=== PATIENT | female | born 1995 | race Caucasian/White ===

== ENCOUNTER 2021-07-12 08:52 | Outpatient (CLI) | payer OTHER, SELFPAY | END 2021-07-12 09:32 | disposition home or self-care (01) | LOC: LABOR 09:14 → OB 07-14 11:07 | PROVIDERS: PCP Obstetrics & Gynecology; Referring Provider Obstetrics & Gynecology; Visit Provider Obstetrics & Gynecology | DX: O24.415 Gestational diabetes mellitus in pregnancy, controlled by oral hypoglycemic drugs (principal); Z3A.36 36 weeks gestation of pregnancy | CPT/HCPCS: 59025; 87653; G0378; G0379 ==

== ENCOUNTER → 2021-07-12 09:36 | Outpatient (CLI) | payer OTHER, SELFPAY ==
[2021-07-13 13:25] LABS: Strep Grp B PCR POS for Grp B Strep
== END ==
PROVIDERS: PCP Obstetrics & Gynecology; Visit Provider Obstetrics & Gynecology
DX: Z34.83 Encounter for supervision of other normal pregnancy, third trimester (principal); Z3A.36 36 weeks gestation of pregnancy
CPT/HCPCS: 87653

== ENCOUNTER 2021-07-15 08:38 | Outpatient (CLI) | payer OTHER, SELFPAY | END 2021-07-15 09:10 | disposition home or self-care (01) | LOC: LABOR 10:08 → OB 07-19 07:28 | PROVIDERS: PCP Obstetrics & Gynecology; Referring Provider Obstetrics & Gynecology; Visit Provider Obstetrics & Gynecology | DX: O24.415 Gestational diabetes mellitus in pregnancy, controlled by oral hypoglycemic drugs (principal); Z3A.37 37 weeks gestation of pregnancy | CPT/HCPCS: 59025; G0378; G0379 ==

== ENCOUNTER 2021-07-18 08:10 | Outpatient (CLI) | payer OTHER, SELFPAY | END 2021-07-18 09:05 | disposition home or self-care (01) | LOC: LABOR 08:39 → OB 07-19 07:30 | PROVIDERS: PCP Student in an Organized Health Care Education/Training Program; Referring Provider Obstetrics & Gynecology; Visit Provider Obstetrics & Gynecology | DX: O24.419 Gestational diabetes mellitus in pregnancy, unspecified control (principal); Z3A.37 37 weeks gestation of pregnancy | CPT/HCPCS: 59025; G0378; G0379 ==

== ENCOUNTER 2021-07-22 09:36 | Outpatient (CLI) | payer OTHER, SELFPAY ==
--- NOTE | 2021-07-22 13:56 | PM.OBTRLD ---
Visit Information Visit Information Date of evaluation: 07/22/21 Primary OB Provider: Melita Gutierrez Reason for Evaluation: Yes non-stress test Comments/Additional reasons for admission: Patient is a 26yo @37 weeks gestation presenting for scheduled NST for GDMA2 on metformin 500mg qHS, with copious movement and no obstetrical complaints. Vital Signs Vital Signs: [facility] Medical History (Updated 07/12/21 @ 08:54 by Melita Gutierrez MD) Anemia affecting (~2020) Anxiety (~03/2019) Asthma (~2000) Depression (~03/2019) Disordered eating (~01/2019) Fibrocystic breast changes Gestational diabetes (~05/2021) Infertility (~2017) Sciatica Family History (Updated 06/10/21 @ 17:07 by Brea Maya RN) Mother Gestational diabetes Congenital heart defect Marcio's disease Miscarriage Osteoporosis Rheumatoid arthritis Skin cancer of face Fibromyalgia Hyperlipidemia Fibrocystic breast changes Asthma Father Hyperlipidemia Skin cancer Grandmother Osteoporosis Fibrocystic breast changes Grandfather Family estrangement Grandmother Melanoma of female breast Melanoma metastatic to brain Grandfather Prostate cancer Sister History of recurrent miscarriages Fibrocystic breast changes Social History marital status: number of children: 0 household members: spouse lives independently: No caregiver/support person: Yes housing: house pets and animals: Yes (3 dogs: safe/aware.) education level: college (AA degree) 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, 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.) current occupational exposures/hazards: No adriane/sikh: Pentecostalism special adriane needs: No seatbelt use: always do you feel safe at home: Yes Smoking Status: Never smoker second hand exposure: No alcohol intake: former (Rare.) substance use type: does not use during the past year weight has: remained stable well-balanced diet: daily or most days (Following GDM diet.) daily servings fruits/ve or more times/day caffeine: Yes (Half-caffeine coffee, 1 cup.) Type(s) of exercise: walking frequency: 1-2 times per week Evaluation Evaluation Baseline heart rate: 150 Variability: Marked (>25) monitor accelerations: Present Monitor Decelerations: Absent Contraction Frequency (minutes): 6 Category of Tracing: Reactive Status: Category l Diagnosis, Plan/Disposition Plan/Disposition Plan: Home with routine precautions, scheduled follow up OB Disposition: home
== END 2021-07-22 10:30 | disposition home or self-care (01) ==
LOC: OB 07-27 11:56
PROVIDERS: PCP Student in an Organized Health Care Education/Training Program; Referring Provider Obstetrics & Gynecology; Visit Provider Obstetrics & Gynecology
DX: O24.415 Gestational diabetes mellitus in pregnancy, controlled by oral hypoglycemic drugs (principal); Z3A.37 37 weeks gestation of pregnancy
CPT/HCPCS: 59025; G0378; G0379

== ENCOUNTER 2021-07-26 08:42 | Outpatient (CLI) | payer OTHER, SELFPAY ==
--- NOTE | 2021-07-26 10:49 | PM.OBTRLD ---
Visit Information Visit Information Date of evaluation: 07/26/21 Primary OB Provider: Melita Gutierrez Reason for Evaluation: Yes non-stress test Comments/Additional reasons for admission: Patient is a 26yo @38+4 presenting for scheduled NST for GDMA2. Vital Signs Vital Signs: 123/67, HR 96 PFSH Medical History (Updated 07/12/21 @ 08:54 by Melita Gutierrez MD) Anemia affecting (~2020) Anxiety (~03/2019) Asthma (~2000) Depression (~03/2019) Disordered eating (~01/2019) Fibrocystic breast changes Gestational diabetes (~05/2021) Infertility (~2017) Sciatica Family History (Updated 06/10/21 @ 17:07 by Brea Maya RN) Mother Gestational diabetes Congenital heart defect Marcio's disease Miscarriage Osteoporosis Rheumatoid arthritis Skin cancer of face Fibromyalgia Hyperlipidemia Fibrocystic breast changes Asthma Father Hyperlipidemia Skin cancer Grandmother Osteoporosis Fibrocystic breast changes Grandfather Family estrangement Grandmother Melanoma of female breast Melanoma metastatic to brain Grandfather Prostate cancer Sister History of recurrent miscarriages Fibrocystic breast changes Social History marital status: number of children: 0 household members: spouse lives independently: No caregiver/support person: Yes housing: house pets and animals: Yes (3 dogs: safe/aware.) education level: college (AA degree) 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, 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.) current occupational exposures/hazards: No adriane/pentecostal: Mosque special adriane needs: No seatbelt use: always do you feel safe at home: Yes Smoking Status: Never smoker second hand exposure: No alcohol intake: former (Rare.) substance use type: does not use during the past year weight has: remained stable well-balanced diet: daily or most days (Following GDM diet.) daily servings fruits/ve or more times/day caffeine: Yes (Half-caffeine coffee, 1 cup.) Type(s) of exercise: walking frequency: 1-2 times per week Evaluation Evaluation Baseline heart rate: 145 Variability: Moderate (11-25) monitor accelerations: Present Monitor Decelerations: Absent Contraction Frequency (minutes): 8 Category of Tracing: Reactive Status: Category l Diagnosis, Plan/Disposition Plan/Disposition Plan: To clinic for scheduled ROXIE/visit. For PIH labs despite normotension as patient reports increased LE swelling, dizziness, palpitations. OB Disposition: home
== END 2021-07-26 09:35 | disposition home or self-care (01) ==
LOC: LABOR 10:25 → OB 07-27 11:58
PROVIDERS: PCP Student in an Organized Health Care Education/Training Program; Referring Provider Obstetrics & Gynecology; Visit Provider Obstetrics & Gynecology
DX: O24.415 Gestational diabetes mellitus in pregnancy, controlled by oral hypoglycemic drugs (principal); O26.893 Other specified pregnancy related conditions, third trimester; R42 Dizziness and giddiness; R00.2 Palpitations; M79.89 Other specified soft tissue disorders; Z3A.38 38 weeks gestation of pregnancy; Z34.90 Encounter for supervision of normal pregnancy, unspecified, unspecified trimester
CPT/HCPCS: 36415; 59025; 80053; 82570; 83615; 84156; 84550; 85025; G0378; G0379

== ENCOUNTER → 2021-07-26 09:38 | Outpatient (CLI) | payer OTHER, SELFPAY ==
[2021-07-26 10:26] LABS: Add Manual Diff / Slide Review NO; Basophils Absolute Auto 0 /uL (0-100); Basophils Percent Auto 0.2 % (0-2); Eosinophils Absolute Auto 100 /uL (0-450); Eosinophils Percent Auto 0.9 % (2-4); Hematocrit 33.3 % (36-46); Hemoglobin 11.4 g/dL (12.0-16.0); Lymphocytes Absolute Auto 1500 /uL (1100-4500); Lymphocytes Percent Auto 19.5 % (25-40); Mean Corpuscular HGB Conc 34.3 % (30-36); Mean Corpuscular Hemoglobin 31.1 PG (26-34); Mean Corpuscular Volume 90.5 fL (80-100); Monocytes Absolute Auto 500 /uL (0-900); Monocytes Percent Auto 6.2 % (3-14); Neutrophils Absolute Auto 5800 /uL (1500-7000); Neutrophils Percent Auto 73.2 % (50-75); Platelet Count 240 X10^3/uL (150-400); Red Blood Cell Count 3.68 X10^6/uL (4.0-5.2); Red Cell Distribution Width 13.9 % (11.6-14.8); White Blood Cell Count 7.9 X10^3/uL (4.5-11.0)
[2021-07-26 11:09] LABS: Alanine Aminotransferase 12 IU/L (<35); Albumin 3.7 g/dL (3.5-5.0); Albumin Globulin Ratio 1.4 (1.0-2.8); Alkaline Phosphatase 124 U/L (38-126); Aspartate Aminotransferase 18 IU/L (14-36); BUN Creatinine Ratio 13.2 (6-22); Bilirubin Total 0.3 mg/dL (0.2-1.3); Blood Urea Nitrogen 5 mg/dL (7-17); Carbon Dioxide 21 mmol/L (22-32); Chloride 107 mmol/L (98-107); Estimated Glomerular Filt Rate > 60.0 mL/min (>60); Globulin 2.6 g/dL (1.7-4.1); Glucose 87 mg/dL (70-100); HEMOLYSIS < 15 (0-50); Lactate Dehydrogenase 385 U/L (313-618); Potassium 4.2 mmol/L (3.4-5.1); Sodium 136 mmol/L (137-145); Total Protein 6.3 g/dL (6.3-8.2); Uric Acid 3.9 mg/dL (2.5-6.2)
[2021-07-26 11:20] LABS: Creatinine Urine Random 11.5 mg/dL; Protein (Total) Urine Random 12 mg/dL (0-12); Protein Creatinine Ratio Urine 1.04 GRAM/24H
== END ==
PROVIDERS: PCP Student in an Organized Health Care Education/Training Program; Referring Provider Obstetrics & Gynecology; Visit Provider Obstetrics & Gynecology
DX: Z34.90 Encounter for supervision of normal pregnancy, unspecified, unspecified trimester (principal)
CPT/HCPCS: 36415; 80053; 82570; 83615; 84156; 84550; 85025

== ENCOUNTER 2021-07-28 12:23 | Outpatient (CLI) | payer OTHER, SELFPAY ==
--- NOTE | 2021-07-28 12:55 | PM.OBTRLD ---
Visit Information Visit Information Date of evaluation: 07/28/21 Primary OB Provider: Melita Gutierrez Reason for Evaluation: Yes non-stress test Comments/Additional reasons for admission: Scheduled NST for GDMA2, IOL scheduled at 39 weeks. Vital Signs Vital Signs: 117/76, HR 106 PFSH Medical History (Updated 07/12/21 @ 08:54 by Melita Gutierrez MD) Anemia affecting (~2020) Anxiety (~03/2019) Asthma (~2000) Depression (~03/2019) Disordered eating (~01/2019) Fibrocystic breast changes Gestational diabetes (~05/2021) Infertility (~2017) Sciatica Family History (Updated 06/10/21 @ 17:07 by Brea Maya RN) Mother Gestational diabetes Congenital heart defect Marcio's disease Miscarriage Osteoporosis Rheumatoid arthritis Skin cancer of face Fibromyalgia Hyperlipidemia Fibrocystic breast changes Asthma Father Hyperlipidemia Skin cancer Grandmother Osteoporosis Fibrocystic breast changes Grandfather Family estrangement Grandmother Melanoma of female breast Melanoma metastatic to brain Grandfather Prostate cancer Sister History of recurrent miscarriages Fibrocystic breast changes Social History marital status: number of children: 0 household members: spouse lives independently: No caregiver/support person: Yes housing: house pets and animals: Yes (3 dogs: safe/aware.) education level: college (AA degree) 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, 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.) current occupational exposures/hazards: No adriane/alevism: Rastafari special adriane needs: No seatbelt use: always do you feel safe at home: Yes Smoking Status: Never smoker second hand exposure: No alcohol intake: former (Rare.) substance use type: does not use during the past year weight has: remained stable well-balanced diet: daily or most days (Following GDM diet.) daily servings fruits/ve or more times/day caffeine: Yes (Half-caffeine coffee, 1 cup.) Type(s) of exercise: walking frequency: 1-2 times per week Evaluation Evaluation Baseline heart rate: 150 Variability: Moderate (11-25) monitor accelerations: Present Monitor Decelerations: Absent Status: Category l Diagnosis, Plan/Disposition Plan/Disposition Plan: Home with precautions- IOL scheduled OB Disposition: home
== END 2021-07-28 13:30 | disposition home or self-care (01) ==
LOC: LABOR 13:38 → OB 08-02 07:31
PROVIDERS: PCP Student in an Organized Health Care Education/Training Program; Referring Provider Obstetrics & Gynecology; Visit Provider Obstetrics & Gynecology
DX: O24.419 Gestational diabetes mellitus in pregnancy, unspecified control (principal); O47.1 False labor at or after 37 completed weeks of gestation; Z3A.39 39 weeks gestation of pregnancy
CPT/HCPCS: 59025; G0378; G0379

== ENCOUNTER → 2021-07-29 15:31 | Outpatient (CLI) | payer OTHER, SELFPAY ==
[2021-07-29 17:53] LABS: Collection Time Urine 24 Hours; Protein (Total) Urine Random 13 mg/dL (0-12); Total Protein 24 Hour Urine 260 mg/day (42-225); Total Volume Urine 2000 mL
== END ==
PROVIDERS: PCP Student in an Organized Health Care Education/Training Program; Referring Provider Obstetrics & Gynecology; Visit Provider Obstetrics & Gynecology
DX: O24.419 Gestational diabetes mellitus in pregnancy, unspecified control (principal)
CPT/HCPCS: 84156

== ENCOUNTER 2021-07-31 01:44 | Inpatient (IN) | payer OTHER, SELFPAY ==
[2021-07-31 02:05] VITALS: BP 126/75
[2021-07-31 02:43] LABS: COVID19 -Nasal RAPID Negative (Negative)
[2021-07-31 02:50] LABS: Add Manual Diff / Slide Review NO; Basophils Absolute Auto 0 /uL (0-100); Basophils Percent Auto 0.3 % (0-2); Eosinophils Absolute Auto 100 /uL (0-450); Eosinophils Percent Auto 0.8 % (2-4); Hematocrit 34.9 % (36-46); Hemoglobin 11.7 g/dL (12.0-16.0); Lymphocytes Absolute Auto 1900 /uL (1100-4500); Lymphocytes Percent Auto 23.1 % (25-40); Mean Corpuscular HGB Conc 33.7 % (30-36); Mean Corpuscular Hemoglobin 30.8 PG (26-34); Mean Corpuscular Volume 91.5 fL (80-100); Monocytes Absolute Auto 600 /uL (0-900); Monocytes Percent Auto 7.2 % (3-14); Neutrophils Absolute Auto 5600 /uL (1500-7000); Neutrophils Percent Auto 68.6 % (50-75); Platelet Count 230 X10^3/uL (150-400); Red Blood Cell Count 3.81 X10^6/uL (4.0-5.2); Red Cell Distribution Width 14.2 % (11.6-14.8); White Blood Cell Count 8.2 X10^3/uL (4.5-11.0)
[2021-07-31] MEDS: LACTATED RINGERS 1,000 ML 100 ML IV ×4 (03:05→18:11)
[2021-07-31] MEDS: PENICILLIN G POTASSIUM 5,000,000 UNIT in DEXTROSE 5% IN WATER 250 ML IV (03:05)
[2021-07-31] MEDS: PENICILLIN G POTASSIUM 3,000,000 UNIT/50 ML FROZ.PIGGY 100 UNIT IV ×3 (07:03→18:16)
--- NOTE | 2021-07-31 10:00 | PM.OBHP.1 ---
OB HPI Date/Time Date of admission: 07/31/21 Date Patient Seen: 07/31/21 Time Patient Seen: 10:00 History of Present Condition Chief complaint: contractions : 3 Para: 0 Estimated Date of Delivery: 07/05/21 Estimated Gestational Age (weeks): 39 Narrative: Estelle Sheffield is a 26 year old female admitted with spontaneous rupture membranes Indications Indication for induction OB: gestational diabetes ( on metformin) History of Present care: good care, initiated at week # (11), number of visits (12) and pounds weight gain (42) Dating criteria: LMP confirmed by 1st trimester US Ultrasounds: normal mid trimester US Obstetrical complications: gestational diabetes ( on metformin 500 mg q.h.s.) Medical complications: none Preadmission Labs Blood type: O (+) positive -: Antibody screen: negative, GBS status: positive, HBsAG: negative, HIV: negative and RPR/VDLR: negative -: Chlamydia screen: not detected and Gonorrhea screen: not detected -: Rubella: immune and Varicella: not immune HCAB: negative Cell-free DNA: normal male 1 hr GTT: 153 3 hr GTT: 1 hr (181), 2 hr (159) and 3 hr (106) Fasting blood glucose: 96 Evaluation Evaluation Baseline heart rate: 130 Variability: Moderate (11-25) monitor accelerations: Present Monitor Decelerations: Absent Contraction Frequency (minutes): 6 Uterine Contraction Intensity: Moderate Category of Tracing: Reactive Status: Category l Dilation (cm): 1 Effacement (%): 75 station: -3 [facility] Medical History (Updated 07/12/21 @ 08:54 by Melita Gutierrez MD) Anemia affecting (~2020) Anxiety (~03/2019) Asthma (~2000) Depression (~03/2019) Disordered eating (~01/2019) Fibrocystic breast changes Gestational diabetes (~05/2021) Infertility (~2017) Sciatica Family History (Updated 06/10/21 @ 17:07 by Brea Maya RN) Mother Gestational diabetes Congenital heart defect Marcio's disease Miscarriage Osteoporosis Rheumatoid arthritis Skin cancer of face Fibromyalgia Hyperlipidemia Fibrocystic breast changes Asthma Father Hyperlipidemia Skin cancer Grandmother Osteoporosis Fibrocystic breast changes Grandfather Family estrangement Grandmother Melanoma of female breast Melanoma metastatic to brain Grandfather Prostate cancer Sister History of recurrent miscarriages Fibrocystic breast changes Social History marital status: number of children: 0 household members: spouse lives independently: No caregiver/support person: Yes housing: house pets and animals: Yes (3 dogs: safe/aware.) education level: college (AA degree) 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, 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.) current occupational exposures/hazards: No adriane/baptist: Mormon special adriane needs: No seatbelt use: always do you feel safe at home: Yes Smoking Status: Never smoker second hand exposure: No alcohol intake: former (Rare.) substance use type: does not use during the past year weight has: remained stable well-balanced diet: daily or most days (Following GDM diet.) daily servings fruits/ve or more times/day caffeine: Yes (Half-caffeine coffee, 1 cup.) Type(s) of exercise: walking frequency: 1-2 times per week Meds Home Medications and Allergies Home Medications Medication Instructions Recorded Confirmed Type albuterol 90 mcg/actuation aerosol mcg INHALATION 06/10/21 07/28/21 History inhaler ascorbic acid (vitamin C) 250 mg 250 mg PO BID 06/10/21 07/31/21 History tablet cholecalciferol (vitamin D3) 50 50 mcg PO DAILY 06/10/21 07/31/21 History mcg (2,000 unit) capsule ferrous gluconate 324 mg (37.5 mg 324 mg PO DAILY 06/10/21 07/31/21 History iron) tablet prenat.vits,ca,irr-utke-ictmt 1 tab PO DAILY 06/10/21 07/31/21 History metformin 500 mg tablet 500 mg PO .qHS #30 tab 07/12/21 07/31/21 Rx Allergies Allergy/AdvReac Type Severity Reaction Status Date / Time sulfamethoxazole Allergy Intermediate Rash, Verified 07/28/21 11:54 [From ] Fever, Nausea trimethoprim [From ] Allergy Intermediate rash, Verified 07/28/21 11:54 fever, nausea Latex, Natural Rubber AdvReac Intermediate Blister Verified 07/28/21 11:54 Review of Systems Review of Systems Narrative: No headaches, scotomata, epigastric pain. Good movement. Spontaneous rupture membranes 12:30 a.m. clear fluid. Gradually increasing contractions with alot of pain in her back OB Exam Narrative Exam Narrative: blood pressure 114/67, pulse 79, temperature 36.1? HEENT exam within normal limits. Lungs are clear to auscultation percussion. Heart is regular rate and rhythm no S3-S4 murmurs. Abdomen is gravid. Fetus is vertex. Extremities without edema and nontender. Objective Labs Result Diagrams: 07/31/21 02:30 Labs: Laboratory Results - last 24 hr 07/31/21 07/31/21 07/31/21 02:25 02:30 02:30 WBC 8.2 RBC 3.81 L Hgb 11.7 L Hct 34.9 L MCV 91.5 MCH 30.8 MCHC 33.7 RDW 14.2 Plt Count 230 Neut % (Auto) 68.6 Lymph % (Auto) 23.1 L [place] % (Auto) 7.2 Eos % (Auto) 0.8 L Baso % (Auto) 0.3 Neut # (Auto) 5600 Lymph # (Auto) 1900 [place] # (Auto) 600 Eos # (Auto) 100 Baso # (Auto) 0 SARS-CoV-2 (PCR) Negative Blood Type O Positive Antibody Screen Negative Assessment and Plan Assessment and Plan Assessment and Plan narrative: 26-year-old at 39 week gestation with spontaneous rupture membranes. patient is receiving IV penicillin for positive group B strep culture. Patient is having increasing contractions but due to the fact that they are still not regular and she has been ruptured for 10 hours will start Pitocin augmentation of labor.
[2021-07-31] MEDS: OXYTOCIN PREMIX 30 UNIT/500 ML PLAST..BAG IV (10:22)
--- NOTE | 2021-07-31 15:56 | PM.OBPNLAB ---
Date/Time Date Patient Seen: 07/31/21 Time Patient Seen: 15:56 Pain Control Pain control: epidural (Still some complaints of pain but improving) Pelvic Exam Dilation (cm): 5 Effacement (%): 100 station: -1 Amniotic membrane status: Ruptured Contractions Contractions on admission: regular Monitor mode: External Pitocin rate (mU/min): 6 Contraction frequency (min): 2 Contraction pattern: Regular Contraction intensity: Strong/Firm Status status: Category l Heart Rate Baseline: 130 Monitor Accelerations: Present Monitor Decelerations: Absent Monitor Variability: Moderate Assessment and Plan Assessment: active labor Plan: continuous present management
--- NOTE | 2021-08-01 00:01 | P.PCNOB_ITS ---
Labor & Delivery Delivery date: 07/31/21 Intrapartal Events: Prolonged 2nd Stage > 2.5 hours Cervical ripening method: none Induction method: none Delivery augmentation: pitocin Delivery monitor: external FHT and external uterine Route of delivery: vacuum extraction Indication for instrumentation: maternal exhaustion L&D Laceration Description: Perineal - 3rd Degree Delivery repair: vicryl (2 0, 0) and chromic (3 0) Estimated blood loss (mL): 300 Anesthesia Type: Epidural Narrative: Patient arrived on Labor and delivery after spontaneous rupture membranes. She was started on IV penicillin for positive group B strep culture. She did not go into active labor on her own so Pitocin was begun. She received an epidural catheter for pain control. heart tones category 1 to category 2 throughout labor. Patient pushed for over 3 hours and was becoming exhausted so decision was made to proceed with a vacuum assisted vaginal delivery. The vacuum was applied and used for 3 contractions with taking the pressure off in between the contractions. The head was delivered over an intact perineum. There was a double nuchal cord that was released. The rest of baby was delivered and the viable male was placed on the maternal abdomen. After the cord stopped pulsating the cord was clamped, cut, and cord bloods obtained. The placenta delivered spontaneously, intact, with 3 vessels. There were no cervical tears. The 3 degree tear was repaired 1st with 0 Vicryl repairing the capsule in 4 sutures posterior, anterior, top and bottom. The perineal defect was closed in 2 layers with the 2-0 Vicryl suture. The remaining tissue was repaired with 3 0 chromic suture in the usual 2 layer fashion. A finger in the rectum did not reveal any rectal mucosal defect. Both infant mother doing well. [place] Baby 1: Infant gender: Male Presentation: vertex Position: Right Occiput Anterior Placenta delivery description: Spontaneous Cord Vessel Description: 3 Vessels and Nuchal Cord ( x2) score (1 min): 8 score (5 min): 9 Plan for aftercare: Routine care
[2021-08-01] MEDS: DERMOPLAST SPRAY 20% 60 ML 1 SPRAY TOP (01:20)
[2021-08-01] MEDS: IBUPROFEN 600 MG TABLET PO ×3 (01:20→18:49)
[2021-08-01] MEDS: DOCUSATE 100 MG CAPSULE PO (09:45)
[2021-08-01] MEDS: FERROUS SULFATE 325 MG TABLET PO (09:45)
[2021-08-01] MEDS: PRENATAL VIT,CALC/IRON/FOLIC 1 TABLET 1 TAB PO (09:45)
--- NOTE | 2021-08-01 16:16 | P.PNOB_ITS ---
Subjective - OB Subjective Patient comments: pain well controlled and flatus present [place] baby status: doing well and nursing well feeding status: exclusively breast feeding Narrative: This patient is PPD#1 s/p a VAVD c/b 3rd degree perineal laceration. The patient reports good pain control, passing flatus. She is hesitant to ambulate out of concerns that this will precipitate bleeding, and has not eaten much yet as she does not like the hospital food. She reports a feeling of pressure but not pain, and is voiding without difficulty. Date Patient Seen: 08/01/21 Time Patient Seen: 12:00 Exam Vital Signs (past 8 hours): 117/70, HR 89, T 98.4F Const General: cooperative, healthy appearing and comfortable Resp Effort & Inspection: normal respiratory effort Auscultation: clear to auscultation bilaterally Cardio Rate: regular rate Rhythm: regular rhythm GI Palpation: soft and No tender (fundus firm, well below u) External Female Exam: normal external appearance Objective Labs Result Diagrams: 07/31/21 02:30 Assessment & Plan Plan day: 1 plan OB: routine care Comments: This patient is meeting goals somewhat appropriately. We discussed the importance of ambulation, and that if this precipitates complications, we will deal with them as they arise. She was also encouraged to eat and drink, as this will help her feel improved. No signs of hemorrhage, no signs of infection. Will continue BID stool softeners, pain control PRN. Time Spent With Patient Time: Total time spent is greater than 50% in coordination of care (as documented) at patient's floor/unit and/or counseling patient: Time with patient: 15-24 minutes
[2021-08-01 16:57] LABS: Add Manual Diff / Slide Review NO; Basophils Absolute Auto 0 /uL (0-100); Basophils Percent Auto 0.3 % (0-2); Eosinophils Absolute Auto 0 /uL (0-450); Eosinophils Percent Auto 0.3 % (2-4); Hematocrit 30.2 % (36-46); Hemoglobin 10.2 g/dL (12.0-16.0); Lymphocytes Absolute Auto 1600 /uL (1100-4500); Lymphocytes Percent Auto 13.8 % (25-40); Mean Corpuscular HGB Conc 33.6 % (30-36); Mean Corpuscular Hemoglobin 30.7 PG (26-34); Mean Corpuscular Volume 91.4 fL (80-100); Monocytes Absolute Auto 800 /uL (0-900); Monocytes Percent Auto 7.3 % (3-14); Neutrophils Absolute Auto 8900 /uL (1500-7000); Neutrophils Percent Auto 78.3 % (50-75); Platelet Count 211 X10^3/uL (150-400); Red Blood Cell Count 3.31 X10^6/uL (4.0-5.2); Red Cell Distribution Width 14.3 % (11.6-14.8); White Blood Cell Count 11.3 X10^3/uL (4.5-11.0)
[2021-08-02 06:51] LABS: Add Manual Diff / Slide Review NO; Basophils Absolute Auto 0 /uL (0-100); Basophils Percent Auto 0.4 % (0-2); Eosinophils Absolute Auto 100 /uL (0-450); Eosinophils Percent Auto 0.9 % (2-4); Hematocrit 28.6 % (36-46); Hemoglobin 9.6 g/dL (12.0-16.0); Lymphocytes Absolute Auto 1800 /uL (1100-4500); Lymphocytes Percent Auto 20.4 % (25-40); Mean Corpuscular HGB Conc 33.5 % (30-36); Mean Corpuscular Volume 92.3 fL (80-100); Monocytes Absolute Auto 600 /uL (0-900); Monocytes Percent Auto 6.3 % (3-14); Neutrophils Absolute Auto 6400 /uL (1500-7000); Platelet Count 202 X10^3/uL (150-400); Red Cell Distribution Width 14.8 % (11.6-14.8); White Blood Cell Count 8.9 X10^3/uL (4.5-11.0)
--- NOTE | 2021-08-02 09:28 | P.DS_ITS ---
Discharge Providers Provider Date of admission: 07/31/21 01:44 Discharge Date: 08/02/21 Primary care physician: Louise Jara DO Consults: 08/01/21 23:59 Consult to Linux Support Engineer Routine Comment: Discharge provider: Melita Gutierrez MD Summary Hospital Course Date Patient Seen: 08/02/21 Time Patient Seen: 09:00 Diagnoses: Vacuum assisted vaginal delivery, 3rd degree perineal laceration Hospital Course: This patient was admitted with PROM, and augmented with pitocin. After a prolonged 2nd stage complicated by maternal exhaustion, she underwent a vacuum assisted vaginal delivery. A 3rd degree perineal laceration was repaired in the usual fashion. She otherwise met milestones well, and was discharged on day 2. Peripartum Data Delivery Method: Assisted Delivery Laceration Description: Perineal - 3rd Degree Procedures: vaginal delivery, 3rd degree laceration repair. [place] 1: Gender: Male Disposition of : home Status at Discharge Cognitive/behavioral status at discharge: oriented Functional status at discharge: independent ambulation Overall status at discharge: patient is progressing back to baseline Time Spent with Patient Time attestation: Total time spent providing and/or coordinating discharge services: Time spent: Greater than 30 minutes Objective Labs Result Diagrams: 08/02/21 06:36 Labs: Laboratory Results - last 24 hr 08/01/21 08/02/21 16:40 06:36 WBC 11.3 H 8.9 RBC 3.31 L 3.10 L Hgb 10.2 L 9.6 L Hct 30.2 L 28.6 L MCV 91.4 92.3 MCH 30.7 31.0 MCHC 33.6 33.5 RDW 14.3 14.8 Plt Count 211 202 Neut % (Auto) 78.3 H 72.0 Lymph % (Auto) 13.8 L 20.4 L [place] % (Auto) 7.3 6.3 Eos % (Auto) 0.3 L 0.9 L Baso % (Auto) 0.3 0.4 Neut # (Auto) 8900 H 6400 Lymph # (Auto) 1600 1800 [place] # (Auto) 800 600 Eos # (Auto) 0 100 Baso # (Auto) 0 0 Exam Vital Signs (past 8 hours): 120/70, HR 86, afebrile Narrative Exam Narrative: Patient ambulating, voiding, passing flatus and having bowel movements. Tolerating PO, , mild lochia. Const General: cooperative, healthy appearing, comfortable and well groomed Resp Effort & Inspection: normal respiratory effort Auscultation: clear to auscultation bilaterally Cardio Rate: regular rate Rhythm: regular rhythm GI Palpation: soft and No tender (fundus firm, well below u) External Female Exam: normal external appearance (no erythema, sutures well approximated, swelling improving) Discharge Plan Discharge Plan Patient Disposition: Home Discharge orders & Medications Prescriptions: New docusate sodium 100 mg capsule 100 mg PO BID Qty: 60 1RF Rx Instructions: Take twice daily. acetaminophen 500 mg tablet 500 mg PO Q8H PRN (Reason: vaginal laceration) Qty: 30 1RF Rx Instructions: Take as often as every 6 hours for pain. ibuprofen 600 mg tablet 600 mg PO Q6H PRN (Reason: vaginal laceration) Qty: 30 1RF Rx Instructions: Take as often as every 6 hours for pain. oxycodone 5 mg tablet 5 mg PO Q6H PRN (Reason: pain) Qty: 20 0RF Rx Instructions: Tale as often as every 6 hours for pain. Continued metformin 500 mg tablet 500 mg PO .qHS Qty: 30 1RF Rx Instructions: Take once nightly. prenat.vits,ca,vhh-hhnc-fkefa Tablet 1 tab PO DAILY 0RF ascorbic acid (vitamin C) 250 mg tablet 250 mg PO BID 0RF ferrous gluconate 324 mg (37.5 mg iron) tablet 324 mg PO DAILY 0RF cholecalciferol (vitamin D3) 50 mcg (2,000 unit) capsule 50 mcg PO DAILY 0RF albuterol 90 mcg/actuation aerosol inhalation 0RF Follow up/Referrals: Louise Jara DO [Primary Care Provider] - Kincaid,MD Melita [Physician] - 2 Weeks (follow up 3rd degree) Diet/Activity/Treatments Diet: Regular Diet comment: High fiber, lots of water. Avoid constipation. Activity: Nothing in the vagina for 6 weeks. Avoid lifting more than 10 pounds for 6 weeks. If you have increasing bleeding, pain, fevers, chills, nausea, vomiting, headaches, visual changes, or any other symptoms or concerns, call or come to the emergency room. Skin/Wound/Dressing Care Report to your healthcare provider any signs of infection, such as:: chills, fever, night sweats, increased pain, unusual drainage and unusual redness Visit Report/Discharge Packet Instructions: DI for Labor and Delivery, Vaginal Discharge Data Primary Care Provider: Louise Jara
[2021-08-02 10:55] VITALS: BP 105/71; PULSE 81; RESP 17; TEMP 37.1
[2021-08-02] MEDS: FERROUS SULFATE 325 MG TABLET PO (11:07)
[2021-08-02] MEDS: DOCUSATE 100 MG CAPSULE PO (11:07)
[2021-08-02] MEDS: PRENATAL VIT,CALC/IRON/FOLIC 1 TABLET 1 TAB PO (11:07)
[2021-08-02 11:08] VITALS: TEMP 37.1
[2021-08-02] MEDS: IBUPROFEN 600 MG TABLET PO (11:08)
[2021-08-02 11:13] VITALS: BP 105/71; PULSE 81; RESP 17; TEMP 37.1
== END 2021-08-02 14:16 | disposition home or self-care (01) | DRG 768 ==
PROVIDERS: Obstetrics & Gynecology; Admitting Provider Specialist; PCP Student in an Organized Health Care Education/Training Program; Referring Provider Specialist; Visit Provider Specialist
DX: O42.02 Full-term premature rupture of membranes, onset of labor within 24 hours of rupture (principal); Z37.0 Single live birth; O70.20 Third degree perineal laceration during delivery, unspecified; Z3A.39 39 weeks gestation of pregnancy; O63.1 Prolonged second stage (of labor); O75.81 Maternal exhaustion complicating labor and delivery; O99.824 Streptococcus B carrier state complicating childbirth; O24.425 Gestational diabetes mellitus in childbirth, controlled by oral hypoglycemic drugs; O69.81X0 Labor and delivery complicated by cord around neck, without compression, not applicable or unspecified; O76 Abnormality in fetal heart rate and rhythm complicating labor and delivery; Z20.822 Contact with and (suspected) exposure to COVID-19
CPT/HCPCS: 01967; 36415; 59050; 59410; 85025; 86850; 86900; 86901; 87635; C9803; G0379; J2540; J2590

== ENCOUNTER → 2023-09-21 07:50 | Outpatient (CLI) | payer OTHER, SELFPAY ==
--- NOTE | 2023-09-21 07:54 | DI.US.S_ITS ---
PROCEDURE: US OB >= 14 WEEKS FETUS INDICATIONS: 20 week anatomy scan OUTSIDE/PRIOR DATING DATA: Last menstrual period (LMP): 04/27/2023. LMP-based estimated date of delivery (URSULA): 02/01/2024. First dating scan (date and location): Unknown. Estimated date of delivery (URSULA) from first dating scan: Not applicable. The calculations are made using the clinical URSULA of 02/01/2024. TECHNIQUE: Real-time scanning was performed of the fetus, with image documentation and biometric measurements. Endovaginal scanning: Not performed COMPARISON: [facility], , OB >= 14 WEEKS FETUS, 07/28/2021, 12:15. FINDINGS: General: A single living intrauterine gestation is present. Presentation: Variable. Placenta: Placental position is posterior , without previa. Amniotic fluid index: 12.3 cm, normal range is 5-24 cm. Single deepest vertical pocket is 3.4 cm. heart rate: 153 beats per minute. Maternal cervical canal: 3.6 cm long. Normal lower limit is 2.5 cm. biometrics: Biparietal diameter: 4.6 centimeters, 20 weeks 0 days Head circumference: 17.7 centimeters, 20 weeks 1 day Abdominal circumference: 16.4 centimeters, 21 weeks 3 days Femur length: 3.5 centimeters, 21 weeks 1 day Clinically estimated gestational age: 21 weeks 0 days Composite gestational age from present scan: 20 weeks 5 days Estimated weight and percentile: 404 grams, 54th percentile Anatomic survey: Neuro: Ventricles are non-dilated at less than 10 mm. Cisterna magna is normal at 3-11 mm. Cerebellum is normal in size and morphology. Nuchal skin fold: Normal at less than 6 mm between 14-21 weeks gestational age. Face: Nose and lips, facial profile are normal. Spine: No evidence for spina bifida. Heart: 4-chambered heart is present, with normal ventricular outflow tracts. Diaphragm: Diaphragm is intact. Stomach: Left-sided stomach is present. Kidneys: No hydronephrosis. Normal is less than 5 mm in 2nd trimester, less than 7 mm in 3rd trimester. Cord: 3-vessel cord has orthotopic insertion. Bladder: Normal in size. Extremities: All 4 extremities identified. IMPRESSION: Single living intrauterine at 21 weeks 0 days, URSULA of 02/01/2024 Estimated weight of 404 grams, 54th percentile. Normal anatomy survey. We strive to produce accurate, complete, and clear reports of imaging services. To assist us in improving patient care, this report was composed using standard report templates and voice recognition software. Therefore, it may contain abnormal punctuation, insertions and/or omissions. Occasional wrong-word or sound-alike substitutions may occur. Though we review the report and make efforts to correct it, we do recommend that the report be read carefully in proper context to recognize any text inaccuracies. Dictated by: Maximus Camp M.D. on 09/21/2023 at 11:48 Approved by: Maximus Camp M.D. on 09/21/2023 at 11:58
== END ==
PROVIDERS: PCP Student in an Organized Health Care Education/Training Program; Referring Provider Nurse Practitioner Obstetrics & Gynecology; Visit Provider Nurse Practitioner Obstetrics & Gynecology
DX: Z34.92 Encounter for supervision of normal pregnancy, unspecified, second trimester (principal); Z3A.21 21 weeks gestation of pregnancy
CPT/HCPCS: 76811

== ENCOUNTER → 2023-10-29 07:54 | Outpatient (CLI) | payer OTHER, SELFPAY ==
[2023-10-29 09:33] LABS: Hematocrit 33.3 % (36-46); Hemoglobin 11.6 g/dL (12.0-16.0); Mean Corpuscular Hemoglobin 33.8 PG (26-34); Mean Corpuscular Volume 96.5 fL (80-100); Platelet Count 223 X10^3/uL (150-400); Red Blood Cell Count 3.44 X10^6/uL (4.0-5.2); Red Cell Distribution Width 14.1 % (11.6-14.8); White Blood Cell Count 7.7 X10^3/uL (4.5-11.0)
[2023-10-29 09:46] LABS: Glucose Fasting 84 mg/dL (70-100)
[2023-10-29 10:30] LABS: Glucose Tol Interpretation INTERPRETATION
[2023-10-29 10:33] LABS: Glucose 1 Hour 141 mg/dL (70-170)
[2023-10-29 11:20] LABS: Glucose 2 Hour 112 mg/dL (70-140)
== END ==
LOC: LAB 07:57
PROVIDERS: PCP Student in an Organized Health Care Education/Training Program; Referring Provider Nurse Practitioner Obstetrics & Gynecology; Visit Provider Nurse Practitioner Obstetrics & Gynecology
DX: Z34.90 Encounter for supervision of normal pregnancy, unspecified, unspecified trimester (principal); Z13.1 Encounter for screening for diabetes mellitus; Z3A.26 26 weeks gestation of pregnancy
CPT/HCPCS: 36415; 82951; 82952; 85027

== ENCOUNTER 2024-01-28 10:26 | Outpatient (CLI) | payer OTHER, SELFPAY ==
--- NOTE | 2024-01-28 11:14 | PM.OBTRLD ---
Visit Information Visit Information Date of evaluation: 01/28/24 Primary OB Provider: Melita Clarke On-call OB Provider: Melita Clarke Reason for Evaluation: Yes non-stress test and Yes rupture of membranes Comments/Additional reasons for admission: Estelle has been having contractions and leaking fluid off and on since Sunday. Nitrazine equivodal in clinic, so came over here for NST and amnisure. Requested SVE once amnisure was negative but did not tolerate well, so exam incomplete. Vital Signs Vital Signs: VS: BP 125/69 Temp 36.7 C temporal HR 95 bpm [facility] Medical History Anemia affecting (~2020) Anxiety (~03/2019) Asthma (~2000) Depression (~03/2019) Disordered eating (~01/2019) Fibrocystic breast changes Gestational diabetes (~05/2021) Infertility (~2017) Sciatica Family History Mother Gestational diabetes Congenital heart defect Marcio's disease Miscarriage Osteoporosis Rheumatoid arthritis Skin cancer of face Fibromyalgia Hyperlipidemia Fibrocystic breast changes Asthma Father Hyperlipidemia Skin cancer Grandmother Osteoporosis Fibrocystic breast changes Grandfather Family estrangement Grandmother Melanoma of female breast Melanoma metastatic to brain Grandfather Prostate cancer Sister History of recurrent miscarriages Fibrocystic breast changes Social History marital status: number of children: 0 household members: spouse lives independently: No caregiver/support person: Yes housing: house pets and animals: Yes (3 dogs: safe/aware.) education level: college (AA degree) 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, 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.) current occupational exposures/hazards: No adriane/christianity: Baptism special adriane needs: No seatbelt use: always do you feel safe at home: Yes Smoking Status: Never smoker second hand exposure: No alcohol intake: former (Rare.) substance use type: does not use during the past year weight has: remained stable well-balanced diet: daily or most days (Following GDM diet.) daily servings fruits/ve or more times/day caffeine: Yes (Half-caffeine coffee, 1 cup.) Type(s) of exercise: walking frequency: 1-2 times per week Evaluation Evaluation Baseline heart rate: 145 Variability: Moderate (11-25) monitor accelerations: Present Monitor Decelerations: Absent Contraction Frequency (minutes): 10 (irregular) Category of Tracing: Reactive station: 0 Comments: Cervix posterior, very tender. Unable to assess dilation well due to tenderness. Feels thin, approx 80% effaced. Diagnosis, Plan/Disposition Final Diagnosis (1) Encounter for supervision of other normal , third trimester: Status: Acute (2) Intact amniotic membranes: Status: Acute (3) NST (non-stress test) reactive: Status: Acute Plan/Disposition Plan: Discharge home with precautions. Encourage calling with questions, concerns, possible ROM. Reviewed warning signs. REviewed normal stop-start pattern of contractions at term when multiparous. Next PNV scheduled for 02/05/24 with CNM.
== END 2024-01-28 11:35 | disposition home or self-care (01) ==
LOC: LABOR 11:31 → OB 01-30 09:25
PROVIDERS: PCP Student in an Organized Health Care Education/Training Program; Referring Provider Advanced Practice Midwife; Visit Provider Advanced Practice Midwife
DX: Z03.71 Encounter for suspected problem with amniotic cavity and membrane ruled out (principal)
CPT/HCPCS: 59025; 84112; G0378; G0379

== ENCOUNTER 2024-01-29 03:31 | Inpatient (IN) | payer OTHER, SELFPAY ==
[2024-01-29 03:45] VITALS: BP 121/62
--- NOTE | 2024-01-29 03:47 | P.HPOB_ITS ---
OB HPI Date/Time Date of admission: 01/29/24 Date Patient Seen: 01/29/24 Time Patient Seen: 03:47 History of Present Condition Chief complaint: Labor Estimated Date of Delivery: 02/01/24 Estimated Gestational Age (weeks): 39 Narrative: Estelle Sheffield is a 28 year old female at 39w4d by LMP confirmed by 8 week ultrasound. She called reporting PROM, clear fluid, at 0200. Due to testing GBS positive, she was admitted for antibiotics. She desires no interventions at this time. Estelle had uncomplicated care with CNMs. She has a history of 1 NSVB at 39 weeks. That labor also started with PROM, and she was induced with pitocin. Estelle is well supported by her , mom and sister. She is having contractions every 15-vargas minutes, getting more intense. History of Present care: good care, initiated at week # (4), number of visits (12) and pounds weight gain (33) Dating criteria: LMP confirmed by 1st trimester US Ultrasounds: normal 1st trimester US and normal mid trimester US Obstetrical complications: none Medical complications: none Preadmission Labs Blood type: O (+) positive -: Antibody screen: negative, Cystic fibrosis screen: unknown, GBS status: negative, HBsAG: negative, HIV: negative and RPR/VDLR: negative -: Chlamydia screen: not detected and Gonorrhea screen: not detected -: Rubella: immune and Varicella: immune HCT: 33.3 HCAB: negative PAP: Normal Cell-free DNA: Negative, XX Narrative: 2 hour GTT: Fasting 84 1 hour 141 2 hour 112 Prior (ies) History: 2021 VAVD at 39w3d; history of 2 SAB (2020) Evaluation Evaluation Baseline heart rate: 135 Variability: Moderate (11-25) monitor accelerations: Present Monitor Decelerations: Absent Contraction Frequency (minutes): 15 (irregular) Category of Tracing: Reactive Comments: Grossly ruptured, clear fluid. CE deferred r/to PROM [facility] Medical History Infertility (~2017) Sciatica Fibrocystic breast changes Depression (~03/2019) Anemia affecting (~2020) Disordered eating (~01/2019) Anxiety (~03/2019) Gestational diabetes (~05/2021) Asthma (~2000) Family History Mother Gestational diabetes Miscarriage Osteoporosis Rheumatoid arthritis Skin cancer of face Fibromyalgia Hyperlipidemia Fibrocystic breast changes Asthma Congenital heart defect Marcio's disease Father Hyperlipidemia Skin cancer Grandmother Osteoporosis Fibrocystic breast changes Grandfather Family estrangement Grandmother Melanoma of female breast Melanoma metastatic to brain Grandfather Prostate cancer Sister History of recurrent miscarriages Fibrocystic breast changes Social History (Updated 01/29/24 @ 03:49 by Melita Clarke CNM, NEMESIO) marital status: number of children: 1 household members: spouse lives independently: No caregiver/support person: Yes housing: house pets and animals: Yes (3 dogs: safe/aware.) education level: college (AA degree) 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, 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.) current occupational exposures/hazards: No adriane/nondenominational: Hinduism special adriane needs: No seatbelt use: always do you feel safe at home: Yes Smoking Status: Never smoker second hand exposure: No alcohol intake: former (Rare.) substance use type: does not use during the past year weight has: remained stable well-balanced diet: daily or most days (Following GDM diet.) daily servings fruits/ve or more times/day caffeine: Yes (Half-caffeine coffee, 1 cup.) Type(s) of exercise: walking frequency: 1-2 times per week Meds Home Medications and Allergies Home Medications Medication Instructions Recorded Confirmed Type albuterol 90 mcg/actuation aerosol mcg inhalation 06/10/21 09/12/21 History inhaler ascorbic acid (vitamin C) 250 mg 250 mg PO BID 06/10/21 09/12/21 History tablet cholecalciferol (vitamin D3) 50 50 mcg PO DAILY 06/10/21 09/12/21 History mcg (2,000 unit) capsule prenat.vits,ca,[id number] 1 tab PO DAILY 06/10/21 09/12/21 History acetaminophen 500 mg tablet 500 mg PO Q8H PRN vaginal 08/02/21 09/12/21 Rx laceration #30 tabs Allergies Allergy/AdvReac Type Severity Reaction Status Date / Time sulfamethoxazole Allergy Intermediate Rash, Verified 08/29/21 11:49 [From ] Fever, Nausea trimethoprim [From ] Allergy Intermediate rash, Verified 08/29/21 11:49 fever, nausea Latex, Natural Rubber AdvReac Intermediate Blister Verified 08/29/21 11:49 Review of Systems Review of Systems Narrative: All negative except as mentioned in HPI OB Exam Vital signs Blood Pressure: 121/62 Pulse Rate: 86 Respiratory Rate: 16 Temperature: 97.2 F Objective Labs 01/29/24 04:00 Assessment and Plan Assessment and Plan Assessment and Plan narrative: @ 39w4d PROM x 2 hours GBS positive Rh positive FHR Cat 1 Cephalic presentation Admit to L&D. Antibiotics for GBS given prophylacitally. Bedside ultrasound performed to confirm vertex presentation. Expectant management for PROM at this time after review of r/b/a of expectant vs active management of PROM. Anticipate NSVB Time-Based Coding :: [TOTAL MINUTES] spent with patient and on the chart (including review of chart, obtaining history, exam, reviewing outside data, placing orders, documenting exam and treatment plan, and counseling patient) on [DATE].
[2024-01-29] MEDS: AMPICILLIN 2,000 MG in SODIUM CHLORIDE 0.9% 100 ML 200 MG IV (04:15)
[2024-01-29] MEDS: LACTATED RINGERS 1,000 ML 100 ML IV (04:15)
[2024-01-29 04:23] LABS: Add Manual Diff / Slide Review NO; Basophils Absolute Auto 0 /uL (0-100); Basophils Percent Auto 0.3 % (0-2); Eosinophils Absolute Auto 100 /uL (0-450); Eosinophils Percent Auto 1.1 % (2-4); Hematocrit 36.2 % (36-46); Hemoglobin 12.4 g/dL (12.0-16.0); Lymphocytes Absolute Auto 2200 /uL (1100-4500); Lymphocytes Percent Auto 22.6 % (25-40); Mean Corpuscular HGB Conc 34.1 % (30-36); Mean Corpuscular Hemoglobin 33.4 PG (26-34); Mean Corpuscular Volume 97.8 fL (80-100); Monocytes Absolute Auto 700 /uL (0-900); Monocytes Percent Auto 7.5 % (3-14); Neutrophils Absolute Auto 6700 /uL (1500-7000); Neutrophils Percent Auto 68.5 % (50-75); Platelet Count 274 X10^3/uL (150-400); Red Cell Distribution Width 13.4 % (11.6-14.8); White Blood Cell Count 9.7 X10^3/uL (4.5-11.0)
[2024-01-29] MEDS: AMPICILLIN 1,000 MG in SODIUM CHLORIDE 0.9% 100 ML 200 MG IV ×4 (08:26→20:22)
[2024-01-29 09:50] VITALS: BP 121/62; PULSE 86; RESP 16; TEMP 36.2
--- NOTE | 2024-01-29 09:50 | PM.OBPNLAB ---
Date/Time Date Patient Seen: 01/29/24 Time Patient Seen: 09:50 Pain Control Pain control: tolerating well Comments: Estelle is resting in bed, just finished eating breakfast. Feeling good. Contractions getting more frequent, now q 10 min apart. Enjoyed sitting on the ball. Might take a nap now. VS: T 98.2 BP 108/62 HR 96 Pelvic Exam station: 0 Amniotic membrane status: Leaking (clear fluid) Comments: Exam deferred. Contractions Contraction frequency (min): 10 (irregular) Status Comments: Intermittent monitoring: Baseline: 150 bpm Increases present Decreases absent Assessment and Plan Comments: at term Term PROM GBS positive, adequately treated FHR reassuring by IA Continue expectant management until at last 1400 (12 hours past PROM). Will discuss plan of care at that time if not yet in active labor. Anticipate NSVB.
--- NOTE | 2024-01-29 14:28 | PM.OBPNLAB ---
Date/Time Date Patient Seen: 01/29/24 Time Patient Seen: 14:00 Pain Control Pain control: tolerating well Comments: CNM assuming care of client. Estelle has elected expected management of PROM. Now at 12 hours post PROM with GBS adequately treated x 3 doses. Estelle's contractions are getting more intense, but still only approx 2 times/hour. She has alternated between sitting on the ball, walking outside, and resting in bed to try and expedite labor. She has continued to leak clear fluid, noticing bloody show, and feeling good baby movement. Estelle has strong desire to avoid pitocin augmentation if possible. supportive and present. Vitals BP: 105/62 HR: 90 Temp: 98.7 F (oral) Pelvic Exam Dilation (cm): 5 Effacement (%): 75 station: -2 Amniotic membrane status: Leaking (clear fluid) Comments: nodule palpated during CE. Sterile speculum exam revealed a 1-1.5cm cyst on the left vaginal sidewall approximately 1cm distal to the cervix. Contractions Contractions on admission: irregular Monitor mode: Palpation Contraction frequency (min): 10 (irregular) Contraction pattern: Irregular Contraction intensity: Moderate Status Heart Rate Baseline: 145 Comments: Reassuring by IA Assessment and Plan Assessment: other Plan: begin patient augmentation Comments: Assessment Latent labor Vaginal cyst PROM x 12 hours, without signs of infection GBS adequately treated FHR reassuring by IA Plan Counseled on PROM x 12 hours and increased risk of infection at 18 hours Discussed options for augmentation, including pitocin, breast pumping, CE with membrane sweep, and continued ambulation Estelle chose to initiate pumping for labor augmentation of labor Counseled on vaginal cyst and possibility of rupture during second stage, unlikely to cause any issues Continue GBS prophylaxis [id number] until delivery Continue IA Reassess in 4 hours or sooner PRN
--- NOTE | 2024-01-29 18:18 | PM.OBPNLAB ---
Date/Time Date Patient Seen: 01/29/24 Time Patient Seen: 18:00 Pain Control Pain control: tolerating well Comments: Estelle is in the tub, chalo regularly, and coping well. Before getting into the tub, Estelle was teary as contractions started to become more intense and more frequent following use of breast pump. She received some relief from the tens unit before getting in the tub. Her mother, sister, and are present and supportive. Vitals BP: 107/63 HR: 95 bpm Temp: 98.2 F (oral) Pelvic Exam Dilation (cm): 6 Effacement (%): 80 station: -1 Amniotic membrane status: Leaking (clear fluid) Contractions Monitor mode: Palpation Contraction frequency (min): 3 (3-5) Contraction pattern: Regular Contraction intensity: Moderate Status Heart Rate Baseline: 155 Comments: FHR reassuring by IA Assessment and Plan Assessment: other Plan: continuous present management Comments: Assessment: Active labor Coping well in tub GBS adequately treated SROM x 16 hours, without signs of infection FHR reassuring by IA Plan: Continue GBS prophylaxis q4 hours Continue IA Labor support PRN Will consider augmentation if minimal change at next check Reassess in 4 hours or sooner PRN
[2024-01-29] MEDS: KETOROLAC 30 MG/ML VIAL IV (23:03)
--- NOTE | 2024-01-29 23:25 | P.PCNOB_ITS ---
Events: Labor Augmentation (Breast pumping/nipple stimulation), Premature Rupture Membrane and Prolonged Rupture Membrane (20 hours) Labor & Delivery Delivery date: 01/29/24 Intrapartal Events: None Cervical ripening method: none Induction method: none Delivery monitor: external FHT and external uterine Route of delivery: Episiotomy description: None L&D Laceration Description: Perineal - 2nd Degree Delivery repair: vicryl and chromic Quantitative Blood Loss: 481 Anesthesia Type: None Narrative: Estelle labored in the tub for two hours and then moved back to her room when she began to feel increased rectal pressure. Switched to continuous monitoring when transitioning back to room d/t tachycardia of 160s-170 bpm on intermittent auscultation. Second stage began at 2027 in hands and knees position. Estelle pushed for an average second stage of 1 hour 36 minutes. FHR was category II throughout. Normal spontaneous vaginal of a vigorous female on 01/29/2024 at 2204 on stool with single loose nuchal reduced via somersault. Shoulders easily delivered with maternal effort. Estelle brought to her chest where she was dried. Apgars 9 at 1 min and 9 at 5 min. IV pitocin initiated for AMTSL. Delayed cord clamping until cord stopped pulsing after approximately 10 minutes, at which time 3-vessel cord was doubly clamped by student nurse-natural science curator and cut by Cole SOSA. Cord blood collected and sent. Fundal massage with uterine support and gentle cord traction applied, placenta delivered spontaneously and intact via marquis. Fundus immediately firm and bleeding scant. Perineum and vagina inspected for lacerations and second degree perineal laceration was identified and repaired with both 3-0 vicryl and 3-0 chromic in the usual fashion. Two one centimeter cysts were removed from within scar tissue at laceration site and disposed of at patient's request. Nitrous oxide and 1% lidocaine local utilized for anesthesia during repair with adequate pain relief. Vaginal and rectal exam following repair was done and tissues well approximated. QBL of 481 ml. Baby and mother are in stable condition. [place] Baby 1: gender: Female Presentation: vertex Position: Left Occiput Anterior Placenta delivery description: Spontaneous and Normal Configuration Cord Vessel Description: 3 Vessels, Nuchal Cord and Loose score (1 min): 9 score (5 min): 9 weight: 3.337 kg Plan for aftercare: Routine care
[2024-01-30] MEDS: IBUPROFEN 600 MG TABLET PO ×3 (05:39→18:58)
[2024-01-30] MEDS: LACTATED RINGERS 1,000 ML 1000 ML IV (08:49)
[2024-01-30] MEDS: DOCUSATE 100 MG CAPSULE PO (08:53)
[2024-01-30] MEDS: WITCH HAZEL/GLYCERIN PADS 1 EACH TOP (09:30)
[2024-01-30 09:36] LABS: Add Manual Diff / Slide Review NO; Basophils Absolute Auto 0 /uL (0-100); Basophils Percent Auto 0.2 % (0-2); Eosinophils Absolute Auto 0 /uL (0-450); Eosinophils Percent Auto 0.1 % (2-4); Hematocrit 33.9 % (36-46); Hemoglobin 11.5 g/dL (12.0-16.0); Lymphocytes Absolute Auto 1600 /uL (1100-4500); Lymphocytes Percent Auto 10.7 % (25-40); Mean Corpuscular HGB Conc 33.9 % (30-36); Mean Corpuscular Hemoglobin 33.1 PG (26-34); Mean Corpuscular Volume 97.6 fL (80-100); Monocytes Absolute Auto 900 /uL (0-900); Monocytes Percent Auto 6.2 % (3-14); Neutrophils Absolute Auto 12500 /uL (1500-7000); Neutrophils Percent Auto 82.8 % (50-75); Platelet Count 256 X10^3/uL (150-400); Red Blood Cell Count 3.47 X10^6/uL (4.0-5.2); Red Cell Distribution Width 12.9 % (11.6-14.8); White Blood Cell Count 15.1 X10^3/uL (4.5-11.0)
[2024-01-30 16:35] LABS: Add Manual Diff / Slide Review NO; Basophils Absolute Auto 100 /uL (0-100); Basophils Percent Auto 0.8 % (0-2); Eosinophils Absolute Auto 0 /uL (0-450); Eosinophils Percent Auto 0.3 % (2-4); Hematocrit 32.9 % (36-46); Hemoglobin 11.2 g/dL (12.0-16.0); Lymphocytes Absolute Auto 1900 /uL (1100-4500); Lymphocytes Percent Auto 13.9 % (25-40); Mean Corpuscular HGB Conc 34.1 % (30-36); Mean Corpuscular Hemoglobin 33.3 PG (26-34); Mean Corpuscular Volume 97.6 fL (80-100); Monocytes Absolute Auto 1000 /uL (0-900); Monocytes Percent Auto 7.4 % (3-14); Neutrophils Absolute Auto 10600 /uL (1500-7000); Neutrophils Percent Auto 77.6 % (50-75); Platelet Count 234 X10^3/uL (150-400); Red Blood Cell Count 3.37 X10^6/uL (4.0-5.2); Red Cell Distribution Width 13.2 % (11.6-14.8); White Blood Cell Count 13.7 X10^3/uL (4.5-11.0)
[2024-01-30 17:00] VITALS: BP 108/56; PULSE 74; RESP 18; TEMP 37.1
--- NOTE | 2024-01-30 17:20 | PM.OBDS.1 ---
Discharge Providers Provider Date of admission: 01/29/24 03:31 Discharge Date: 01/30/24 Primary care physician: Louise Jara DO Consults: 01/30/24 23:21 Consult to Supervisor Filling And Packing Routine Comment: Discharge provider: Stephanie Perez CNM Summary Hospital Course Date Patient Seen: 01/30/24 Time Patient Seen: 17:21 Diagnoses: O70.1 Hospital Course: Admitted for labor, NSVB with second degree perineal laceration. PPD 1: Estelle started to feel weak and dizzy in early AM. Symptoms improved after one liter of LR given. Estelle denies s/s of infection including increasing abdominal pain, malodorous discharge, or feeling fever/chills. She is using tucks pads, dermaplast spray, and ice to manage perineal swelling. Her cramping while is relieved by ibuprofen. She declines tylenol. Estelle is ambulating, voiding. and independently. Bleeding minimal and fundus firm, umbilicus -1. Estelle desires early discharge to home. Peripartum Data Delivery Method: Natural Vaginal Laceration Description: Perineal - 2nd Degree Episiotomy description: None 1: Gender: Female Disposition of : home Discharge Diagnosis (1) Del w/ 2 deg lac-unsp: Status: Acute Status at Discharge Cognitive/behavioral status at discharge: oriented Functional status at discharge: independent ambulation Overall status at discharge: patient is back to baseline Time Spent with Patient Time attestation: Total time spent providing and/or coordinating discharge services: Objective Labs 01/30/24 16:25 Labs: Laboratory Results - last 24 hr 01/30/24 01/30/24 09:27 16:25 WBC 15.1 H D 13.7 H RBC 3.47 L 3.37 L Hgb 11.5 L 11.2 L Hct 33.9 L 32.9 L MCV 97.6 97.6 MCH 33.1 33.3 MCHC 33.9 34.1 RDW 12.9 13.2 Plt Count 256 234 Neut % (Auto) 82.8 H 77.6 H Lymph % (Auto) 10.7 L 13.9 L Graham % (Auto) 6.2 7.4 Eos % (Auto) 0.1 L 0.3 L Baso % (Auto) 0.2 0.8 Neut # (Auto) 92250 H 10602 H Lymph # (Auto) 1600 1900 Graham # (Auto) 900 1000 H Eos # (Auto) 0 0 Baso # (Auto) 0 100 Exam Vital Signs (past 8 hours): - 01/30/24 17:00 Temperature 98.8 F Pulse Rate 74 Respiratory Rate 18 Blood Pressure 108/56 L Other: Perineal tissue well approximated, mildly edematous. Scant bleeding noted. Fundus firm, -1 umbilicus Discharge Plan Discharge Plan Patient Disposition: Home Discharge orders & Medications Prescriptions: New ibuprofen 600 mg Tablet 600 mg PO Q6HR PRN (Reason: Pain, Mild (1-3)) 14 Days Qty: 60 0RF Continued prenat.vits,ca,mtq-[id number] Tablet 1 tab PO DAILY ascorbic acid (vitamin C) 250 mg tablet 250 mg PO BID cholecalciferol (vitamin D3) 50 mcg (2,000 unit) capsule 50 mcg PO DAILY albuterol 90 mcg/actuation aerosol inhalation acetaminophen 500 mg tablet 500 mg PO Q8H PRN (Reason: vaginal laceration) Qty: 30 1RF Rx Instructions: Take as often as every 6 hours for pain. Follow up/Referrals: Louise Jara DO [Primary Care Provider] - Stephanie Perez CNM [Advanced Order Selector] - (2week follow-up phone call 02/13/24 @ 3pm 6week follow-up office visit 03/12/24 @ 12:45pm) Diet/Activity/Treatments Diet: Diet as Tolerated and Regular Activity: 1week bed rest, 4 week no lifting >10lbs, 6 weeks pelvic rest Skin/Wound/Dressing Care Report to your healthcare provider any signs of infection, such as:: chills, fever, increased pain, unusual drainage and unusual redness Visit Report/Discharge Packet Instructions: Depression Stand Alone Forms: Patient Portal/API, Stroke Signs & Symptoms Discharge Data Primary Care Provider: Louise Jara
== END 2024-01-30 19:18 | disposition home or self-care (01) | DRG 807 ==
PROVIDERS: Nurse Practitioner Obstetrics & Gynecology; Admitting Provider Advanced Practice Midwife; PCP Student in an Organized Health Care Education/Training Program; Referring Provider Advanced Practice Midwife; Visit Provider Advanced Practice Midwife
DX: O42.02 Full-term premature rupture of membranes, onset of labor within 24 hours of rupture (principal); Z37.0 Single live birth; O70.1 Second degree perineal laceration during delivery; Z3A.39 39 weeks gestation of pregnancy; O99.824 Streptococcus B carrier state complicating childbirth; O76 Abnormality in fetal heart rate and rhythm complicating labor and delivery
CPT/HCPCS: 36415; 59050; 85025; 86850; 86900; 86901; G0379; J0290; J1885